=== PATIENT | female | born 1930 | race African-American/Black ===

== ENCOUNTER 2019-08-15 20:59 | Emergency (ER) | payer OTHER ==
[~2019-08-15] VITALS: Ht 152.4 cm; Wt 68.0 kg
[2019-08-15 23:51] LABS: ABSOLUTE NEUTROPHILS 4.6 thou/uL (1.4-8.2); BASOPHILS 0.9 % (0.0-2.0); EOSINOPHILS 2.2 % (0.0-3.0); LYMPHOCYTES 30.8 % (24.0-44.0); MCH 28.7 pg (26.0-34.0); MCHC 32.4 g/dL (28.0-37.0); MCV 88.3 fL (80.0-100.0); MONOCYTES 11.3 % (1.0-8.0); PLATELET COUNT 257 thou/uL (150-400); POLYS 54.8 % (36.0-66.0); RBC 4.53 mil/uL (4.20-5.00); RDW 14.8 % (10.5-14.5); WBC 8.5 thou/uL (4.0-11.0)
[2019-08-15 23:59] LABS: CALCIUM 10.3 mg/dL (8.5-10.1); CREATININE 1.2 mg/dL (0.6-1.0); POTASSIUM 4.1 mmol/L (3.5-5.1)
[2019-08-16] MEDS ORDERED: PRINIVIL5 MG (00:01)
[2019-08-16] MEDS ORDERED: CIPRO500 M1 PO (00:35)
[2019-08-16] MEDS ORDERED: ATORVASTATIN CA10 MG PO (00:36)
[2019-08-16] MEDS ORDERED: CELECOXIB100 MG PO (00:36)
[2019-08-16] MEDS ORDERED: PLAVIX 75 MG TA75 MG PO (00:36)
[2019-08-16] MEDS ORDERED: ALENDRONATE SOD70 MG PO (00:36)
[2019-08-16] MEDS ORDERED: TRADJENTA5 MG (00:36)
[2019-08-16] MEDS ORDERED: AMLODIPINE BESY10 MG PO (00:36)
[2019-08-16] MEDS ORDERED: LISINOPRIL20 MG PO (00:37)
[2019-08-16] MEDS ORDERED: METFORMIN HCL500 MG PO (00:37)
[2019-08-16 01:30] VITALS: BP 150/101
== END 2019-08-16 01:30 | disposition home or self-care (01) ==
LOC: ER 20:59
PROVIDERS: Emergency Medicine Emergency Medical Services
DX: K80.20 Calculus of gallbladder without cholecystitis without obstruction (principal); R79.1 Abnormal coagulation profile; Z88.0 Allergy status to penicillin